=== PATIENT | female | born 1980 | race Caucasian/White ===

== ENCOUNTER → 2021-11-14 | Outpatient (CLI) | payer OTHER | LOC: M OUTALCOH 08:25 | PROVIDERS: ATTEND Psychiatry & Neurology Psychiatry | DX: Z13.30 Encounter for screening examination for mental health and behavioral disorders, unspecified (principal) ==

== ENCOUNTER 2021-12-02 11:21 | Outpatient (RCR) | payer OTHER | END 2021-12-12 | LOC: M OUTALCOH 11:21 | PROVIDERS: ATTEND Psychiatry & Neurology Psychiatry | DX: Z03.89 Encounter for observation for other suspected diseases and conditions ruled out (principal) ==

== ENCOUNTER 2021-12-30 08:35 | Emergency (ER) | payer OTHER ==
[~2021-12-30] VITALS: Ht 167.6 cm; Wt 57.3 kg
[2021-12-30] MEDS ORDERED: LORazepam 1 MG TAB PO STA (11:28)
[2021-12-30] MEDS ORDERED: ACETAMINOPHEN 500 MG TAB PO ONE (11:30)
[2021-12-30] MEDS ORDERED: IBUPROFEN 800 MG TAB PO ONE (11:30)
[2021-12-30] MEDS ORDERED: EMLA CREAM 5GM TUBE (LIDOCAINE/PRILOCAINE) TOP ONE (11:35)
[2021-12-30] MEDS ORDERED: LIDOCAINE W/EPINEPHRINE 1% 20ML VIAL SC ONE (11:35)
[2021-12-30] MEDS ORDERED: ceFAZolin SOD 2 GM in IV 1 EA IV ONE (14:10)
[2021-12-30] MEDS ORDERED: AMOX875T2 PO ×2 (15:52→16:13)
[2021-12-30 16:37] VITALS: BP 115/59
== END 2021-12-30 16:52 | disposition home or self-care (01) ==
LOC: EDBD 08:35 → M ED 08:35
DX: S41.112A Laceration without foreign body of left upper arm, initial encounter (principal); S56.922A Laceration of unspecified muscles, fascia and tendons at forearm level, left arm, initial encounter; W54.0XXA Bitten by dog, initial encounter; Y92.009 Unspecified place in unspecified non-institutional (private) residence as the place of occurrence of the external cause; F32.A Depression, unspecified; F41.9 Anxiety disorder, unspecified; F17.200 Nicotine dependence, unspecified, uncomplicated
CPT/HCPCS: 12002; 73090; 96365; 99284; J0690